=== PATIENT | female | born 2000 | race Two or more races ===

== ENCOUNTER 2022-12-18 18:00 | Emergency (ER) | payer OTHER ==
[~2022-12-18] VITALS: Ht 160 cm; Wt 75.0 kg
[2022-12-18 18:03] VITALS: BP 127/88
== END 2022-12-18 19:51 | disposition home or self-care (01) ==
LOC: EMS 18:02
DX: F41.9 Anxiety disorder, unspecified (principal)
CPT/HCPCS: 99281; Z7502

== ENCOUNTER 2024-03-11 00:22 | Emergency (ER) | payer OTHER ==
[~2024-03-11] VITALS: Ht 167.6 cm; Wt 69.1 kg
[2024-03-11 00:24] VITALS: BP 123/73; PULSE 89; RESP 20; TEMP 98.6
== END 2024-03-11 01:47 | disposition left against medical advice (07) ==
LOC: EMS 00:22
DX: Z53.21 Procedure and treatment not carried out due to patient leaving prior to being seen by health care provider (principal)